=== PATIENT | female | born 1955 | race Caucasian/White ===

== ENCOUNTER 2024-10-13 08:59 | Outpatient (REF) | payer MEDICARE, SELFPAY ==
--- OUTSIDE RECORDS SUMMARY | 2024-10-13 09:24 | XMS_ITS | Patient Health Record ---
Author Organization [facility] Address [address] [place], [place] [address] Care Team Providers Care Telecine Operator Name Role Phone Jay Huerta MD Primary Care Provider Cristina Arreguin Unavailable [phone] Allergies Allergen (clinical drug ingredient) Drug/Non Drug Allergy documented on EMR Reaction Allergy Type Onset Date Status aspirin Aspirin abdomial pain/discomfort Drug Allergy Active codeine Codeine anaphalphic reaction Drug Allergy Active Reason For Referral No Information Medications Medication SIG (Take, Route, Fr equency, Duration) Notes Start Date End Date Status Atorvastatin Calcium Active Atenolol 25 MG 1 tablet Orally Once a day Active OxyCONTIN Active KlonoPIN Active aspirin baby Active Vitamin D2 Active Problems No Known Problems Plan Of Treatment Pending Test Test Name Order Date [id number] NAIL, 1-5 02/21/2015 Insurance Providers Payer Name Payer Address Payer Phone Subscriber Number Group Number Insured Name Patient Relationship to Insured Coverage Start Date Coverage End Date [employer] [address] [place] [id number] [phone] Mirna Spangler Self - patient is the insured Medical (General) History Medical History History ICD Code Anxiety High blood pressure Thyroid disorder Measles Mumps Chicken pox Surgical History Surgery Date(Month/Year) appendectomy 1974 section 1987 thymectomy 2007 ovarian cyst removed
== END 2024-10-13 09:00 | disposition home or self-care (01) ==
LOC: HO.MMNH2L 08:59
PROVIDERS: Visit Provider Student in an Organized Health Care Education/Training Program
DX: Z13.89 Encounter for screening for other disorder (principal)